=== PATIENT | male | born 1955 | race Caucasian/White ===

== ENCOUNTER 2016-12-12 17:38 | Emergency (ER) | payer SELFPAY ==
[~2016-12-12] VITALS: Ht 172.7 cm; Wt 79.0 kg
[2016-12-12 17:41] VITALS: Ht 172.7 cm; Wt 79.0 kg
== END 2016-12-12 20:37 | disposition left against medical advice (07) ==
LOC: E/R 17:38
DX: Z53.21 Procedure and treatment not carried out due to patient leaving prior to being seen by health care provider (principal)